=== PATIENT | female | born 1995 | race Caucasian/White ===

== ENCOUNTER → 2019-08-03 | Outpatient (REF) ==
--- NOTE | 2019-08-03 10:51 | Diagnostic Imaging Report ---
INDICATION: POSITIVE T-SPOT COMPARISON: None. FINDINGS: Frontal and lateral views of the chest demonstrate normal heart size and pulmonary vascularity. The lungs are clear. There are no signs of infiltrate, pleural effusions or pneumothoraces. The visualized osseous structures show no acute abnormalities. IMPRESSION: 1. No acute process. No signs of infiltrates, effusions or pneumothoraces. Dictated by: Dictated on workstation # [id number]
== END | disposition home or self-care (01) ==
LOC: OCC 10:37
PROVIDERS: ATTEND Nurse Practitioner Family
CPT/HCPCS: 71046

== ENCOUNTER → 2023-09-25 | Outpatient (CLI) | payer BC ==
--- NOTE | 2023-09-25 17:05 | Diagnostic Imaging Report ---
INDICATION: Supervision of normal . Anatomy scan. TECHNIQUE: Multiple real-time grayscale images were obtained over the gravid uterus. COMPARISON: None FINDINGS: A single live intrauterine gestation is visualized in breech presentation. heart tones measure 142 bpm. The placenta is anterior and not low lying. The MAGUI is normal and measures 18.8 cm. The cervix is closed and measures 5.5 cm in length. The bladder, stomach, brain, four-chamber heart, outflow tracts, three-vessel cord, and cord insertion are visualized and have a normal appearance. The kidneys and spine are not well seen due to position. Views of the adnexa are unremarkable. Biometrical measurements are as follows: Biparietal 4.56 cm, age 19 weeks 6 days. Head circumference 17.34 cm, age 20 weeks 0 days. Abdominal circumference 15.23 cm, age 20 weeks 4 days. Femur length 3.08 cm, age 19 weeks 4 days. Sonographic estimate age: 20 weeks 0 days. Sonographic estimated date of delivery: 02/12/2024. Estimated Weight: 326 gm (+/- 48 gm). LMP percentile: 38%. heart rate: 142 beats per minute. number: 1 of 1. IMPRESSION: 1. Single live intrauterine gestation measuring 20 weeks 0 days and estimated due date of 02/12/2024. These are within range with the clinical dates. 2. The kidneys and spine are not well seen due to position. The remainder of the anatomy is visualized and has a normal appearance. Recommend continued followup as indicated. 3. Breech presentation. Dictated by: Dictated on workstation # [id number]
== END ==
LOC: RAD 15:03
PROVIDERS: ATTEND Nurse Practitioner Women's Health
DX: O32.1XX0 Maternal care for breech presentation, not applicable or unspecified (principal); Z3A.20 20 weeks gestation of pregnancy
CPT/HCPCS: 76805